=== PATIENT | female | born 1995 | race Caucasian/White ===

== ENCOUNTER 2018-04-30 23:18 | Emergency (ER) | payer BC ==
[~2018-04-30] VITALS: Ht 157.5 cm; Wt 52.3 kg
[~2018-04-30 23:18] MED LIST: CARAFATE 1GM1 G PO; NO HOME MEDICATIONS
[2018-04-30 23:20] VITALS: BP 143/86; TEMP 98.8
[2018-05-01 00:41] VITALS: PULSE 87
== END 2018-05-01 00:41 | disposition home or self-care (01) ==
LOC: COL.ER 23:18
DX: T78.40XA Allergy, unspecified, initial encounter (principal)
CPT/HCPCS: J2930